=== PATIENT | female | born 1955 | race Caucasian/White ===

== ENCOUNTER 2017-03-03 21:20 | Emergency (ER) | payer BC ==
[2017-03-03 21:28] VITALS: BP 137/70
[2017-03-03] MEDS ORDERED: Tetan/Diph/Pertus SYR(Tdap)* 0.5 ML SYR(BOOSTRIX) use SYR IM ONE (21:58)
[2017-03-03] MEDS ORDERED: Lidocaine 1% INJ* 10 MG/ML 30 ML SDV INJ ONE (22:06)
[2017-03-03] MEDS ORDERED: Lidocaine 1% MPF* 2 ML VIAL ONE (22:09)
[2017-03-03] MEDS ORDERED: Lidocaine 1% MPF* 2 ML VIAL INJ ONE (22:12)
--- NOTE | 2017-03-03 22:18 | UC ---
Laceration HPI - HPI Summary HPI Summary: Cut herself on left index finger with an exacto knife aporoximately 80 minutes ago. Last Tdap unknown. - History Of Current Complaint Chief Complaint: UCLaceration Stated Complaint: LEFT FINGER LACS Time Seen by Provider: 03/03/17 21:56 - Allergies/Home Medications Allergies/Adverse Reactions: Allergies Allergy/AdvReac Type Severity Reaction Status Date / Time No Known Allergies Allergy Verified 02/12/16 18:05 Home Medications: Home Medications Vitamin E 1,000 unit PO 03/03/17 [History] PMH/Surg Hx/FS Hx/Imm Hx Previously Healthy: Yes - Surgical History Surgical History: Yes Surgery Procedure, Year, and Place: t&a at 1 years old, ORAL SURGERY - Family History Known Family History: Positive: Diabetes, Other - CANCER Negative: Cardiac Disease, Hypertension - Social History Alcohol Use: None Substance Use Type: None Smoking Status (MU): Never Smoked Tobacco Review of Systems Constitutional: Negative All Other Systems Reviewed And Are Negative: Yes Physical Exam Triage Information Reviewed: Yes Vital Signs: Initial Vital Signs Temp 97.5 F 03/03/17 21:23 Pulse 85 03/03/17 21:23 Resp 18 03/03/17 21:23 BP 137/70 03/03/17 21:23 Pulse Ox 99 03/03/17 21:23 Vital Signs Reviewed: Yes Laceration Repair - Laceration Repair 1 Description: Linear Laceration Size After Repair: Length (cm) - 1,5 Type Injection: Digital Anesthesia Used: 1.0% Lido Cleansing Completed Via Routine Prep: Yes Irrigation With Pressure Irrigation Device: No Closure Material: Sutures Closure Method: Single Layer Suture Of: Skin, SQ Suture Type: Vicryl Laceration Course/Dx - Differential Dx - Laceration/Wound Provider Diagnoses: laceration left index finger Discharge - Discharge Plan Condition: Stable Disposition: HOME Patient Education Materials: Care For Your Stitches (ED), Finger Laceration (ED ) Referrals: Lydia Red MD [Primary Care Provider] - Images Hands: 1 - longitudinal laceration 1.5cm length
== END 2017-03-03 22:55 | disposition home or self-care (01) ==
LOC: UCEAST 21:20
DX: S61.211A Laceration without foreign body of left index finger without damage to nail, initial encounter (principal); W26.0XXA Contact with knife, initial encounter; Y93.9 Activity, unspecified; Y92.9 Unspecified place or not applicable; Z23 Encounter for immunization
CPT/HCPCS: 12001; 90715; 99211; G0463

== ENCOUNTER 2017-10-25 19:00 | Emergency (ER) | payer BC ==
[2017-10-25 19:31] VITALS: BP 128/60
--- NOTE | 2017-10-25 19:45 | UC ---
Knee Pain HPI - HPI Summary HPI Summary: 62 year old female presents with onset of right knee pain since this morning after twisting it while playing with her grandchildren. States pain "in entire knee". Describes as constant "ache". Worsens with movement, bearing weight, and climbing stairs. Has taken ibuprofen 400 mg with some relief. Last dose 1700. Able to bear weight and ambulate immediately after injury and in department. Denies extremity weakness, numbness, tingling, erythema, ecchymosis, or swelling. States she has been receiving PT for past month for right lower extremity pain that her PCP believes originates from lower back. - History of Current Complaint Chief Complaint: UCLowerExtremity Stated Complaint: KNEE INJURY Time Seen by Provider: 10/25/17 19:16 Hx Obtained From: Patient ?: No Onset/Duration: Sudden Onset Severity Initially: Moderate Severity Currently: Moderate Pain Intensity: 8 Character: Aching Aggravating Factor(s): Movement, Weight Bearing, Stairs Alleviating Factor(s): Rest, OTC Meds Associated Signs And Symptoms: Positive: Negative Able to Bear Weight: Yes - Risk Factors Septic Arthritis Risk Factor: Negative Gout Risk Factor: Negative - Allergies/Home Medications Allergies/Adverse Reactions: Allergies Allergy/AdvReac Type Severity Reaction Status Date / Time No Known Allergies Allergy Verified 10/25/17 19:31 Home Medications: Home Medications Cholecalciferol TAB* [Vitamin D TAB*] 1,000 unit PO DAILY 10/25/17 [History Confirmed 10/25/17] Ibuprofen TAB* [Advil TAB*] 400 mg PO PRN 10/25/17 [History] L.acidoph,Paracasei, B.lactis [Probiotic] 1 each PO DAILY 10/25/17 [History Confirmed 10/25/17] PMH/Surg Hx/FS Hx/Imm Hx Previously Healthy: Yes - Surgical History Surgical History: Yes Surgery Procedure, Year, and Place: t&a at 1 years old, ORAL SURGERY - Family History Known Family History: Positive: Diabetes, Other - CANCER Negative: Cardiac Disease, Hypertension - Social History Occupation: Employed Full-time Lives: With Family Alcohol Use: None Substance Use Type: None Smoking Status (MU): Never Smoked Tobacco Review of Systems Constitutional: Negative Skin: Negative Respiratory: Negative Cardiovascular: Negative Motor: Negative Neurovascular: Negative Musculoskeletal: Arthralgia Is Patient Immunocompromised?: No All Other Systems Reviewed And Are Negative: Yes Physical Exam Triage Information Reviewed: Yes Appearance: Well-Appearing, No Pain Distress, Well-Nourished Vital Signs: Initial Vital Signs Temp 96.9 F 10/25/17 19:26 Pulse 84 10/25/17 19:26 Resp 16 10/25/17 19:26 BP 128/60 10/25/17 19:26 Pulse Ox 97 10/25/17 19:26 Vital Signs Reviewed: Yes Musculoskeletal: Positive: Strength Intact, ROM Intact, No Edema, Other: - Mild generalized tenderness to palpation right knee. No effusion or crepitus. Negative anterior/posterior drawer, valgus and varus stress. Skin Exam: Normal Knee Pain Course/Dx - Course Course Of Treatment: Due to twisting injury of knee patient symptoms likely a mild sprain. Will treat conservatively with naproxen 500 mg BID, Rest, Ice, and gentle ROM exercises. - Differential Dx/Diagnosis Provider Diagnoses: Right knee sprain Discharge - Sign-Out/Discharge Documenting (check all that apply): Patient Departure - Discharge Plan Condition: Stable Disposition: HOME Prescriptions: Naproxen [Naproxen 500 mg tab] 500 mg PO Q12HR #30 tablet. Patient Education Materials: Knee Sprain (ED) Referrals: Lydia Red MD [Primary Care Provider] - If Needed (in 2 weeks if no improvement) - Billing Disposition and Condition Condition: STABLE Disposition: Home
== END 2017-10-25 20:05 | disposition home or self-care (01) ==
LOC: UCEAST 19:00
DX: S83.91XA Sprain of unspecified site of right knee, initial encounter (principal); X50.1XXA Overexertion from prolonged static or awkward postures, initial encounter; Y93.89 Activity, other specified; Y92.9 Unspecified place or not applicable
CPT/HCPCS: 99212; G0463